=== PATIENT | male | born 1965 | race Caucasian/White ===

== ENCOUNTER 2021-06-24 17:25 | Outpatient (CLI) | payer MEDICAID, SELFPAY ==
[2021-06-24] MEDS: 0.9% Saline Lock 10 ML Syringe IV (18:00)
[2021-06-24 18:08] VITALS: BP 132/76; PULSE 96; RESP 20; TEMP 37.4; O2SAT 98; BMI 26.6
[2021-06-24 18:44] VITALS: BP 135/62; PULSE 64; RESP 18; TEMP 37.3; O2SAT 99
[2021-06-24 19:40] VITALS: BP 130/76; PULSE 94; RESP 18; TEMP 37.7; O2SAT 98
== END 2021-06-24 19:47 | disposition home or self-care (01) ==
LOC: MS3OUT 17:25 → MS3 17:26
PROVIDERS: Referring Provider Nurse Practitioner Adult Health; Visit Provider Nurse Practitioner Adult Health
DX: Z23 Encounter for immunization (principal); U07.1 COVID-19
CPT/HCPCS: J7050; M0245; Q0245; A4216